=== PATIENT | female | born 1990 | race Caucasian/White ===

== ENCOUNTER 2017-01-07 13:55 | Emergency (ER) | payer OTHER ==
[2017-01-07] MEDS ORDERED: Hydromorphone 1 mg/ml Ampule IV ONE (14:25)
[2017-01-07] MEDS ORDERED: Zofran 4 MG/2 ML VIAL IV ONE (14:25)
[2017-01-07] MEDS ORDERED: Lactated Ringers 1,000 ML IV ONE ×2 (14:25→14:33)
--- NOTE | 2017-01-07 14:28 | ERPHSYRPT ---
- History of Present Illness Time Seen by Provider: 01/07/17 14:21 Historian: patient Patient Subjective Stated Complaint: ab dominal pain and tenderness pain in b ack and sides, x1 week Triage Nursing Assessment: pt alert ando riented x3, patient able to ambulate, gait is steady, skin clean dry and intact, lung soudns clear, pupils perrla2, stomach tender to palpation on left side , patient having frequent stools. bowl sounds present x 4 quads Physician History: CC: abd pain Hx: 26 y/o patient of Dr Edu Nuno. She has 2 week of nonbloody diarreha, abd pain and cramping. No fever or chills. LMP 2 months ago[address] She saw Dr Nuno Saturday who wanted CT abd but denied by insurance. She tried hyosciamine without relief. Normal urination. Pain moderate and diffuse. Allergies/Adverse Reactions: No Known Drug Allergies Allergy (Verified 09/16/15 23:54) Hx Tetanus, Diphtheria Vaccination/Date Given: Yes Hx Influenza Vaccination/Date Given: No Hx Pneumococcal Vaccination/Date Given: No Immunizations Up to Date: Yes - Review of Systems Constitutional: No Fever, No Chills Eyes: No Symptoms Ears, Nose, & Throat: No Symptoms Respiratory: No Cough, No Dyspnea Cardiac: No Chest Pain Abdominal/Gastrointestinal: Abdominal Pain, Diarrhea, No Nausea, No Vomiting Genitourinary Symptoms: No Dysuria Musculoskeletal: No Back Pain Skin: No Rash Neurological: No Headache All Other Systems: Reviewed and Negative - Past Medical History Pertinent Past Medical History: No Neurological History: No Pertinent History ENT History: No Pertinent History Cardiac History: No Pertinent History Respiratory History: Bronchitis Endocrine Medical History: No Pertinent History, Other Musculoskeletal History: No Pertinent History GI Medical History: No Pertinent History History: No Pertinent History Psycho-Social History: No Pertinent History Female Reproductive Disorders: No Pertinent History - Past Surgical History Past Surgical History: Yes Neuro Surgical History: No Pertinent History Respiratory: No Pertinent History Gastrointestinal: No Pertinent History Genitourinary: No Pertinent History Musculoskeletal: No Pertinent History Female Surgical History: Section Other Surgical History: C-SECTIONS - Social History Smoking Status: Never smoker Exposure to second hand smoke: No Drug Use: none Patient Lives Alone: No - Nursing Vital Signs Nursing Vital Signs: Initial Vital Signs Temperature 98.1 F 01/07/17 13:55 Pulse Rate 101 H 01/07/17 13:55 Respiratory Rate 20 01/07/17 13:55 Blood Pressure 156/88 01/07/17 13:55 O2 Sat by Pulse Oximetry 96 01/07/17 13:55 Pain Scale Pain Intensity 8 - Physical Exam General Appearance: alert, obese Eye Exam: PERRL/EOMI Ears, Nose, Throat Exam: normal ENT inspection, moist mucous membranes Neck Exam: normal inspection, non-tender, supple Respiratory Exam: normal breath sounds Cardiovascular Exam: regular rate/rhythm Gastrointestinal/Abdomen Exam: soft, tenderness (diffuse discomfort), No distention, No guarding Back Exam: normal inspection, normal range of motion Extremity Exam: normal inspection, normal range of motion Neurologic Exam: alert, oriented x 3, cooperative, sensation nml, No motor deficits Skin Exam: warm, dry, No rash SpO2 Interpretation: normal SpO2: 96 Oxygen Delivery: Room Air - Course Nursing assessment & vital signs reviewed: Yes - CT Exams abd/pelvis CT Interpretation: Tele-radiologist Report (fatty infiltrated large colon, HSM, borderline CM, paraumbilical hernia) Ordered Tests: Active Orders 24 hr Category Date Time Status IV Insertion STAT Care 01/07/17 14:25 Active NPO (ED) STAT Care 01/07/17 14:25 Active ABDOMEN AND PELVIS W CONTRAST [CT] Stat Exams 01/07/17 14:25 Taken CBC W DIFF Stat Lab 01/07/17 14:33 Completed CMP Stat Lab 01/07/17 14:33 Completed CULTURE,URINE Stat Lab 01/07/17 14:33 Received HCG QUALITATIVE,SERUM Stat Lab 01/07/17 14:33 Completed LIPASE Stat Lab 01/07/17 14:33 Completed Lactic Acid Stat Lab 01/07/17 Completed UA W/ MICROSCOPIC Stat Lab 01/07/17 14:33 Completed Medication Summary Discontinued Medications Generic Name Dose Route Start Last Admin Trade Name Freq PRN Reason Stop Dose Admin Hydromorphone HCl 1 mg 01/07/17 14:25 01/07/17 14:40 Hydromorphone 1 Mg/Ml Ampule IV 01/07/17 14:26 1 mg STAT ONE Administration Hydromorphone HCl Confirm 01/07/17 14:33 Hydromorphone 1 Mg/Ml Ampule Administered 01/07/17 14:34 Dose 1 mg .ROUTE .STK-MED ONE Lactated Ringer's 1,000 mls @ 999 mls/hr 01/07/17 14:25 01/07/17 14:40 Lactated Ringers IV 01/07/17 15:25 999 mls/hr .Q1H1M ONE Administration Lactated Ringer's Confirm 01/07/17 14:33 Lactated Ringers Administered 01/07/17 14:34 Dose 1,000 mls @ ud IV .STK-MED ONE Ondansetron HCl 4 mg 01/07/17 14:25 01/07/17 14:41 Zofran 4 Mg/2 Ml Vial IV 01/07/17 14:26 4 mg STAT ONE Administration Ondansetron HCl Confirm 01/07/17 14:32 Zofran 4 Mg/2 Ml Vial Administered 01/07/17 14:33 Dose 4 mg .ROUTE .STK-MED ONE Lab/Rad Data: Laboratory Result Diagrams 01/07/17 14:33 01/07/17 14:33 Laboratory Results 01/07/17 01/07/17 01/07/17 Range/Units Unknown 14:33 14:33 WBC (4.0-10.5) K/mm3 RBC (4.1-5.4) M/mm3 Hgb (12.0-16.0) gm/dl Hct (35-47) % MCV (78-100) fl MCH (26-32) pg MCHC (32-36) g/dl RDW (11.5-14.0) % Plt Count (150-450) K/mm3 MPV (6-9.5) fl Gran % (36.0-66.0) % Lymphocytes % (24.0-44.0) % Monocytes % (0.0-12.0) % Eosinophils % (0.00-5.0) % Basophils % (0.0-0.4) % Basophils # (0-0.4) Sodium 140 (136-145) mEq/L Potassium 3.6 (3.5-5.1) mEq/L Chloride 106 (98-107) mEq/L Carbon Dioxide 27.0 (21-32) mEq/L Anion Gap 10.3 (5-15) MEQ/L BUN 10 (9-20) mg/dL Creatinine 0.86 (0.55-1.30) mg/dl Estimated GFR > 60 ML/MIN Glucose 106 (70-110) MG/DL Lactic Acid 1.5 (0.4-2.0) Calcium 9.2 (8.5-10.1) mg/dL Total Bilirubin 0.40 (0.2-1.0) mg/dL AST 36 (15-37) U/L ALT 74 (12-78) U/L Alkaline Phosphatase 72 (46-116) U/L Serum Total Protein 7.3 (6.4-8.2) gm/dL Albumin 3.6 (3.4-5.0) g/dL Lipase 111 (73-393) U/L Serum , Qual NEGATIVE (Negative) Ur Collection Type Urine Color (YELLOW) Urine Appearance (CLEAR) Urine pH (5-6) Ur Specific [place] (1.005-1.025) Urine Protein (Negative) Urine Ketones (NEGATIVE) Urine Blood (0-5) Tip/ul Urine Nitrite (NEGATIVE) Urine Bilirubin (NEGATIVE) Urine Urobilinogen (0-1) mg/dL Ur Leukocyte Esterase (NEGATIVE) Urine Microscopic RBC (0-2) /HPF Urine Microscopic WBC (0-5) /HPF Ur Epithelial Cells (FEW) /HPF Urine Bacteria (NEGATIVE) /HPF Urine Glucose (NEGATIVE) mg/dL Specimen Received 01/07/17 01/07/17 Range/Units 14:33 14:33 WBC 6.9 (4.0-10.5) K/mm3 RBC 4.86 (4.1-5.4) M/mm3 Hgb 12.9 (12.0-16.0) gm/dl Hct 39.5 (35-47) % MCV 81.3 (78-100) fl MCH 26.5 (26-32) pg MCHC 32.7 (32-36) g/dl RDW 14.6 H (11.5-14.0) % Plt Count 228 (150-450) K/mm3 MPV 9.4 (6-9.5) fl Gran % 60.6 (36.0-66.0) % Lymphocytes % 30.1 (24.0-44.0) % Monocytes % 7.7 (0.0-12.0) % Eosinophils % 1.3 (0.00-5.0) % Basophils % 0.3 (0.0-0.4) % Basophils # 0.02 (0-0.4) Sodium (136-145) mEq/L Potassium (3.5-5.1) mEq/L Chloride (98-107) mEq/L Carbon Dioxide (21-32) mEq/L Anion Gap (5-15) MEQ/L BUN (9-20) mg/dL Creatinine (0.55-1.30) mg/dl Estimated GFR ML/MIN Glucose (70-110) MG/DL Lactic Acid (0.4-2.0) Calcium (8.5-10.1) mg/dL Total Bilirubin (0.2-1.0) mg/dL AST (15-37) U/L ALT (12-78) U/L Alkaline Phosphatase (46-116) U/L Serum Total Protein (6.4-8.2) gm/dL Albumin (3.4-5.0) g/dL Lipase (73-393) U/L Serum , Qual (Negative) Ur Collection Type CLEAN CATCH Urine Color YELLOW (YELLOW) Urine Appearance SLIGHTLY CLOUDY (CLEAR) Urine pH 8.5 (5-6) Ur Specific [place] 1.005 (1.005-1.025) Urine Protein NEGATIVE (Negative) Urine Ketones NEGATIVE (NEGATIVE) Urine Blood 5-10 (0-5) Tip/ul Urine Nitrite NEGATIVE (NEGATIVE) Urine Bilirubin NEGATIVE (NEGATIVE) Urine Urobilinogen NORMAL (0-1) mg/dL Ur Leukocyte Esterase NEGATIVE (NEGATIVE) Urine Microscopic RBC 2-5 (0-2) /HPF Urine Microscopic WBC 2-5 (0-5) /HPF Ur Epithelial Cells MANY (FEW) /HPF Urine Bacteria MODERATE (NEGATIVE) /HPF Urine Glucose NEGATIVE (NEGATIVE) mg/dL Specimen Received 01/07/17 1425 - Progress Progress Note: 01/07/17 14:[address] to rule out colitis. 01/07/17 16:22 No diarrhea here. Stable. Advised follow up with Dr Edu Nuno as may need GI or colonoscopy. Rx flagyl and lomotil. Counseled pt/family regarding: lab results, diagnosis, need for follow-up, rad results - Departure Time of Disposition: 16:22 Departure Disposition: Home Clinical Impression: Colitis Condition: Stable Critical Care Time: No Referrals: DILAN NUNO [Primary Care Provider] - Instructions: Abdominal Pain-Adult, Diarrhea and Traveler's Diarrhea -- Adult Additional Instructions: Rx flagyl- no alcohol Rx lomotil if needed for diarrhea. No driving and stay with family tonite. Follow up with Dr Edu Nuno this week. Return for problems or concerns. Prescriptions: Diphenoxylate HCl/Atropine [Lomotil Tablet] 1 each PO Q6-8HPRN PRN #10 tablet PRN Reason: Diarrhea Metronidazole 500 mg [Flagyl 500 MG] 500 mg PO TID #21 tablet
[2017-01-07] MEDS ORDERED: Zofran 4 MG/2 ML VIAL ONE (14:32)
[2017-01-07] MEDS ORDERED: Hydromorphone 1 mg/ml Ampule ONE (14:33)
[2017-01-07 14:36] LABS: BASOPHIL % 0.3 % (0.0-0.4); Eosinophil % 1.3 % (0.00-5.0); Granulocytes % 60.6 % (36.0-66.0); Lymphocytes % 30.1 % (24.0-44.0); Mean Cell Volume 81.3 fl (78-100); Mean Corpuscular Hemoglobin 26.5 pg (26-32); Mean Platelet Volume 9.4 fl (6-9.5); Monocytes % 7.7 % (0.0-12.0); Platelet Count 228 K/mm3 (150-450); Red Blood Count 4.86 M/mm3 (4.1-5.4); Red Cell Distribution Width 14.6 % (11.5-14.0); White Blood Count 6.9 K/mm3 (4.0-10.5)
[2017-01-07 14:47] LABS: Collection Type CLEAN CATCH
[2017-01-07 14:48] LABS: Bacteria MODERATE /HPF (NEGATIVE); Bilirubin NEGATIVE (NEGATIVE); COMPLETE URINE MICROSCOPIC? YES; Epithelial Cells MANY /HPF (FEW); Glucose NEGATIVE (NEGATIVE); Leukocyte Esterase NEGATIVE (NEGATIVE)
[2017-01-07 14:49] LABS: ADD URINE CULTURE? YES (NO)
[2017-01-07 15:03] LABS: ALBUMIN 3.6 g/dL (3.4-5.0); ALKALINE PHOSPHATASE 72 U/L (46-116); ANION GAP 10.3 MEQ/L (5-15); BLOOD UREA NITROGEN 10 mg/dL (9-20); CHLORIDE 106 mEq/L (98-107); Glucose 106 MG/DL (70-110); LIPASE 111 U/L (73-393); Potassium 3.6 mEq/L (3.5-5.1); SGOT/AST 36 U/L (15-37); SGPT/ALT 74 U/L (12-78); SODIUM 140 mEq/L (136-145); Total Protein 7.3 gm/dL (6.4-8.2)
[2017-01-07 16:25] VITALS: O2SAT 96
[2017-01-07 16:30] VITALS: BP 131/74; PULSE 67
--- NOTE | 2017-01-07 21:18 | XRAY ---
Indication: Lower abdominal pain. Multiple contiguous axial images obtained through the abdomen and pelvis using 80 cc Isovue 370 contrast only. Comparison: November 21, 2009. Lung bases now demonstrates right base calcified granuloma. Heart is not enlarged. Noncontrasted stomach and bowel loops appear nonobstructed. Normal appendix. No free fluid/air. Again fatty liver. Remaining liver, gallbladder, pancreas, spleen, adrenal glands, kidneys, ureters, bladder, uterus, and aorta appear unremarkable. No pathologic retroperitoneal lymphadenopathy. Osseous structures intact again with left L5 spondylolysis without spondylolisthesis. New small fatty umbilical hernia. Impression: 1. Again fatty liver.. 2. New fatty umbilical hernia. 3. No acute intra-abdominal/pelvic abnormalities. Comment: Preliminary interpretation was made by [facility]. No critical discrepancy. CTDI 23.68
== END 2017-01-07 16:29 | disposition home or self-care (01) ==
LOC: ED 13:55
DX: K52.9 Noninfective gastroenteritis and colitis, unspecified (principal); R10.9 Unspecified abdominal pain; R19.7 Diarrhea, unspecified
CPT/HCPCS: 36000; 36415; 74177; 80053; 81000; 83605; 83690; 84703; 85025; 87086; 96360; 96374; 96375; 99284; J1170; J2405

== ENCOUNTER 2017-03-29 21:37 | Emergency (ER) | payer OTHER ==
--- NOTE | 2017-03-29 23:08 | ERPHSYRPT ---
- History of Present Illness Time Seen by Provider: 03/29/17 23:03 Source: patient Exam Limitations: no limitations Patient Subjective Stated Complaint: Per patient c/o left ear pain x1 week, worse today, no other complaints, no med hx, no meds, nkda, pt last took tylenol at 1500 hrs today, "feels like i have fluid in my ear" Triage Nursing Assessment: Per patient c/o left ear pain x1 week, worse today, no other complaints, no med hx, no meds, nkda, pt last took tylenol at 1500 hrs today, "feels like i have fluid in my ear" Physician History: pt has one week history of pain left ear - no N/V no known fever - temp 99.5 now - tm normal but ext canal is very tender and swollen with drainage ; the ST is swollen but mastoid is nontender; swollowing OK in ER; no meningismis CT discussed and pt declines at this time after discussion of benefit /risk ; no diabetes or other med problems per pt; Timing/Duration: gradual onset, persistent, days Severity: moderate ENT Location: ear (L) Prearrival Treatment: over the counter meds Modifying Factors: Improves With: nothing Associated Symptoms: ear pain (L), ear drainage, facial pain/swelling, No tooth pain, No difficulty swallowing, No voice change Allergies/Adverse Reactions: No Known Drug Allergies Allergy (Verified 09/16/15 23:54) Hx Tetanus, Diphtheria Vaccination/Date Given: Yes Hx Influenza Vaccination/Date Given: Yes Hx Pneumococcal Vaccination/Date Given: Yes Immunizations Up to Date: Yes - Review of Systems Constitutional: No Fever, No Chills Eyes: No Symptoms Ears, Nose, & Throat: Ear Pain, Ear Discharge Respiratory: No Cough, No Dyspnea Cardiac: No Chest Pain, No Edema, No Syncope Abdominal/Gastrointestinal: No Abdominal Pain, No Nausea, No Vomiting, No Diarrhea Genitourinary Symptoms: No Dysuria Musculoskeletal: No Back Pain, No Neck Pain Skin: No Rash Neurological: No Dizziness, No Focal Weakness, No Sensory Changes Psychological: No Symptoms Endocrine: No Symptoms All Other Systems: Reviewed and Negative - Past Medical History Pertinent Past Medical History: No Neurological History: No Pertinent History ENT History: No Pertinent History Cardiac History: No Pertinent History Respiratory History: Bronchitis Endocrine Medical History: No Pertinent History, Other Musculoskeletal History: No Pertinent History GI Medical History: No Pertinent History History: No Pertinent History Psycho-Social History: No Pertinent History Female Reproductive Disorders: No Pertinent History - Past Surgical History Past Surgical History: Yes Neuro Surgical History: No Pertinent History Respiratory: No Pertinent History Gastrointestinal: No Pertinent History Genitourinary: No Pertinent History Musculoskeletal: No Pertinent History Female Surgical History: Section Other Surgical History: C-SECTIONS - Social History Smoking Status: Never smoker Exposure to second hand smoke: No Drug Use: none Patient Lives Alone: No - Female History Hx Now: No - Nursing Vital Signs Nursing Vital Signs: Initial Vital Signs Temperature 99.6 F 03/29/17 22:41 Pulse Rate 120 H 03/29/17 22:41 Respiratory Rate 12 03/29/17 22:41 Blood Pressure 170/90 03/29/17 22:41 O2 Sat by Pulse Oximetry 99 03/29/17 22:41 Pain Scale Pain Intensity 6 - Physical Exam General Appearance: no apparent distress, alert Eye Exam: bilateral eye: normal inspection, PERRL, EOMI Ear Exam: right ear: canal normal, left ear: swelling, tenderness, bilateral ear : auricle normal, TM normal Nasal Exam: normal inspection Throat Exam: pharynx normal, moist mucus membranes, No tonsillar exudate Neck Exam: supple Cardiovascular/Respiratory Exam: normal breath sounds, regular rate/rhythm Abdominal Exam: non-tender, soft Neurologic Exam: alert, oriented x 3, sensation nml, No motor deficits Skin Exam: normal color, warm, dry SpO2 Interpretation: normal SpO2: 99 Oxygen Delivery: Room Air Ordered Tests: Medication Summary Generic Name Dose Route Start Last Admin Trade Name Freq PRN Reason Stop Dose Admin Ciprofloxacin 500 mg 03/30/17 23:14 03/29/17 23:49 Cipro 500 Mg PO 03/30/17 23:15 500 mg STAT ONE Administration Discontinued Medications Generic Name Dose Route Start Last Admin Trade Name Freq PRN Reason Stop Dose Admin Hydrocodone Bitart/Acetaminophen 2 tab 03/29/17 23:14 03/29/17 23:50 [place] 5/325 Mg PO 03/29/17 23:15 2 tab SENT HOME W/ PATIENT ONE Administration Hydrocodone Bitart/Acetaminophen Confirm 03/29/17 23:40 [place] 5/325 Mg Administered 03/29/17 23:41 Dose 2 tab .ROUTE .STK-MED ONE Amoxicillin/Clavulanate Potassium 875 mg 03/29/17 23:12 03/29/17 23:49 Augmentin 875-125 Tablet PO 03/29/17 23:13 875 mg STAT ONE Administration Amoxicillin/Clavulanate Potassium Confirm 03/29/17 23:39 Augmentin 875-125 Tablet Administered 03/29/17 23:40 Dose 875 mg .ROUTE .STK-MED ONE Ciprofloxacin Confirm 03/29/17 23:40 Cipro 500 Mg Administered 03/29/17 23:41 Dose 500 mg .ROUTE .STK-MED ONE Neomycin/Polymyxin/Hydrocortisone 10 ml 03/29/17 23:12 03/29/17 23:49 Cortisporin Ear Drops Solution 1oml OT 03/29/17 23:13 10 ml STAT ONE Administration - Progress Progress: improved, re-examined Progress Note: 03/29/17 23:21 discussed also risk of cipro on tendons and pt wishes to proceed on the shorter one week course; Counseled pt/family regarding: diagnosis, need for follow-up - Departure Time of Disposition: 23:15 Departure Disposition: Home Clinical Impression: Otitis externa Condition: Good Critical Care Time: No Referrals: DILAN NUNO [Primary Care Provider] - Instructions: Otitis Externa Additional Instructions: followup with your for blood pressure; and to recheck ear this week; return meantime if not improving , vomiting , fever or increased swelling or other concerns; Prescriptions: Amoxicillin/Potassium Clav [Augmentin 875-125 Tablet] 875 mg PO BID #20 tablet Ciprofloxacin [Cipro 500 MG] 500 mg PO BID #14 tablet Hydrocodone Bit/Acetaminophen [[place] 5-325 Tablet] 1 each PO Q4-6HPRN PRN #10 tablet PRN Reason: Pain Nura/Baci/Poly/Hc Ear Solution* [CORTISPORIN EAR DROPS Solution 1OML] 10 ml OT TID #1 bottle
[2017-03-29] MEDS ORDERED: CORTISPORIN EAR DROPS Solution 1OML OT ONE (23:12)
[2017-03-29] MEDS ORDERED: Augmentin 875-125 Tablet PO ONE (23:12)
[2017-03-29] MEDS ORDERED: NORCO 5/325 MG PO ONE (23:14)
[2017-03-29] MEDS ORDERED: Augmentin 875-125 Tablet ONE (23:39)
[2017-03-29] MEDS ORDERED: Cipro 500 MG ONE (23:40)
[2017-03-29] MEDS ORDERED: NORCO 5/325 MG ONE (23:40)
[2017-03-30 00:36] VITALS: BP 142/69; PULSE 89; O2SAT 98
[2017-03-30] MEDS ORDERED: Cipro 500 MG PO ONE (23:14)
== END 2017-03-30 00:35 | disposition home or self-care (01) ==
LOC: ED 21:37
DX: H60.90 Unspecified otitis externa, unspecified ear (principal)
CPT/HCPCS: 99283; A9270-GY